=== PATIENT | male | born 1930 | race Caucasian/White ===

== ENCOUNTER 2018-11-13 13:02 | Inpatient (IN) | payer MEDICARE ==
[2018-11-11 09:43] LABS: BASOPHILS # (AUTO) 0.1 X10'3 (0-0.2); BASOPHILS % (AUTO) 0.9 % (0-1); EOSINOPHILS # (AUTO) 0.3 X10'3 (0-0.9); EOSINOPHILS % (AUTO) 3.4 % (0-6); HEMATOCRIT 40.1 % (42.0-52.0); HEMOGLOBIN 13.6 g/dl (14.0-17.9); LYMPHOCYTES # (AUTO) 1.7 X10'3 (1.1-4.8); LYMPHOCYTES % (AUTO) 22.8 % (21-51); MEAN CORPUSCULAR HEMOGLOBIN 32.9 PG (27.0-31.0); MEAN CORPUSCULAR VOLUME 96.9 FL (78-98); MEAN PLATELET VOLUME 7.3 FL (7.4-10.4); MONOCYTES # (AUTO) 0.9 X10'3 (0-0.9); MONOCYTES % (AUTO) 11.5 % (2-12); NEUTROPHILS # (AUTO) 4.7 X10'3 (1.8-7.7); NEUTROPHILS % (AUTO) 61.4 % (42-75); PLATELET COUNT 172 X10'3 (140-440); RED BLOOD COUNT 4.14 X10'6 (4.70-6.10); RED CELL DISTRIBUTION WIDTH 13.5 % (11.5-14.5); WHITE BLOOD COUNT 7.7 X10'3 (4.5-11.0)
[2018-11-11 09:51] LABS: ALANINE AMINOTRANSFERASE 30 U/L (12-78); ALBUMIN 3.4 G/DL (3.4-5.0); ALBUMIN/GLOBULIN RATIO 0.8 (1.1-1.5); ALKALINE PHOSPHATASE 96 IU/L (46-116); ANION GAP 4 (8-16); ASPARTATE AMINO TRANSFERASE 15 U/L (10-37); BILIRUBIN,TOTAL 0.8 MG/DL (0.1-1.0); BLOOD UREA NITROGEN 15 MG/DL (7-18); BUN/CREATININE RATIO 15.6 (5.4-32.0); CALCIUM 9.2 MG/DL (8.5-10.1); CHLORIDE 102 MMOL/L (99-107); CREATININE 0.96 MG/DL (0.60-1.10); POTASSIUM 4.4 MMOL/L (3.5-5.1); SODIUM 136 MMOL/L (135-145); TOTAL CARBON DIOXIDE 30.4 MMOL/L (24-32); TOTAL PROTEIN 7.7 G/DL (6.4-8.2); eGFR 74 ML/MIN
[2018-11-11 09:52] LABS: GLUCOSE 157 MG/DL (70-104)
[~2018-11-13] VITALS: Ht 172.7 cm; Wt 86.3 kg
[2018-11-13] VITALS (12 sets, daily range): BP systolic 103–172; BP diastolic 52–82
[~2018-11-13 13:02] MED LIST: ASPI81TA52 PO; METO-395 PO
[2018-11-13] MEDS ORDERED: glucagon, human recombinant 1mg kit SUBCUT PRN (13:25)
[2018-11-13] MEDS ORDERED: LORazepam 0.5 MG tablet PO PRN (13:25)
[2018-11-13] MEDS ORDERED: dextrose 50%-water 50ml dispensing syringe IV PRN ×2 (13:25)
[2018-11-13] MEDS ORDERED: insulin Lispro (HumaLOG) vial - multi-dose SQ SCH (13:25)
[2018-11-13] MEDS ORDERED: clopidogrel 300mg tablet PO ONE (13:25)
[2018-11-13] MEDS ORDERED: dextrose ORAL solution 15 GM/59 ML bottle PO PRN ×2 (13:25)
[2018-11-13] MEDS ORDERED: nitroGLYCERIN 0.4mg SUBLingual tab SL PRN ×2 (13:25→17:15)
[2018-11-13] MEDS ORDERED: diphenhydrAMINE 25mg capsule PO PRN (13:25)
[2018-11-13] MEDS: normal saline 1,000 ML IV SCH (14:17)
[2018-11-13] MEDS ORDERED: CLOP75TA35 PO (14:38)
[2018-11-13] MEDS ORDERED: METO1TAB38 PO (14:38)
[2018-11-13] MEDS ORDERED: midazolam 2 mg/2 ml injection ONE (15:16)
[2018-11-13] MEDS ORDERED: LIDOcaine 1% (10mg/ml)w/preservative injection 20ml MDV ONE (15:16)
[2018-11-13] MEDS ORDERED: heparin 1,000 UNITS/NS 500ml 500 ML ONE (15:16)
[2018-11-13] MEDS ORDERED: fentaNYL/PF 50MCG/1 ML 2ML syringe ONE (15:16)
[2018-11-13] MEDS ORDERED: heparin 1,000unit/ml 10ml vial 10 ML ONE (15:16)
[2018-11-13] MEDS ORDERED: iohexol 350 MG/1 ML 200ml bottle ONE (15:16)
[2018-11-13] MEDS ORDERED: tirofiban 5mg in NS 100mL 100 ML IV ONE (15:29)
[2018-11-13] MEDS ORDERED: heparin 25,000 UNIT/250ml bag 250 ML IV ONE ×2 (15:45→17:15)
[2018-11-13] MEDS ORDERED: acetaminophen 325mg tablet PO PRN (17:10)
[2018-11-13] MEDS ORDERED: magnesium hydroxide 30ml (MOM) UD suspension PO PRN (17:10)
[2018-11-13] MEDS ORDERED: cyclobenzaprine 10mg tablet PO PRN (17:10)
[2018-11-13] MEDS ORDERED: proCHLORperazine 10 MG/2 ml inj IV PRN (17:10)
[2018-11-13] MEDS ORDERED: nitroGLYCERIN-Tridil 50MG/D5W 250 ML IV SCH (17:10)
[2018-11-13] MEDS ORDERED: OXAZEpam 15mg capsule PO PRN (17:10)
[2018-11-13] MEDS ORDERED: morphine 4 MG/ML inj SYRINge IV PRN (17:10)
[2018-11-13] MEDS ORDERED: morphine 10mg/ml inj. IV PRN (17:10)
[2018-11-13] MEDS: aspirin 81mg tab.chew PO SCH (17:10)
[2018-11-13] MEDS ORDERED: HYDROcodone/acetaminophen 10/325mg tab PO PRN (17:10)
[2018-11-13] MEDS ORDERED: nitroGLYCERIN-Tridil 50MG/D5W 250 ML IV PRN (17:25)
[2018-11-13] MEDS: tirofiban 5mg in NS 100mL 100 ML IV SCH (17:52)
--- NOTE | 2018-11-13 18:15 | NUR ---
Patient in room CICU 2006. I have received report from MAURA WEISS and had the opportunity to ask questions and assume patient care.
--- NOTE | 2018-11-13 19:00 | NUR ---
PT CATH SITE IS OOZING. DRESSING REINFORCED. NO HEMATOMA PRESENT. BILATERAL PEDAL PULSES PALPABLE. PT ORIENTED TO ROOM AND CALL LIGHT. PT A&O X 4. WILL CONTINUE TO MONITOR
[2018-11-13] MEDS: docusate sod 100mg capsule PO SCH (19:59)
[2018-11-13] MEDS: insulin glargine (Lantus) pen - multi-dose SQ SCH (21:00)
[2018-11-13 21:19] LABS: BASOPHILS # (AUTO) 0.1 X10'3 (0-0.2); BASOPHILS % (AUTO) 0.7 % (0-1); EOSINOPHILS # (AUTO) 0.3 X10'3 (0-0.9); EOSINOPHILS % (AUTO) 3.3 % (0-6); HEMATOCRIT 37.7 % (42.0-52.0); LYMPHOCYTES # (AUTO) 2.5 X10'3 (1.1-4.8); LYMPHOCYTES % (AUTO) 32.2 % (21-51); MEAN CORPUSCULAR HEMOGLOBIN 32.6 PG (27.0-31.0); MEAN CORPUSCULAR HGB CONC 34.6 g/dL (33.0-36.5); MEAN CORPUSCULAR VOLUME 94.5 FL (78-98); MONOCYTES # (AUTO) 0.8 X10'3 (0-0.9); MONOCYTES % (AUTO) 10.2 % (2-12); NEUTROPHILS # (AUTO) 4.2 X10'3 (1.8-7.7); NEUTROPHILS % (AUTO) 53.6 % (42-75); PLATELET COUNT 152 X10'3 (140-440); RED BLOOD COUNT 3.99 X10'6 (4.70-6.10); RED CELL DISTRIBUTION WIDTH 13.2 % (11.5-14.5); WHITE BLOOD COUNT 7.9 X10'3 (4.5-11.0)
[2018-11-13] MEDS ORDERED: heparin 25,000 UNIT/250ml bag 250 ML IV SCH (21:57)
[2018-11-14] VITALS (26 sets, daily range): BP systolic 102–165; BP diastolic 50–95
[2018-11-14] MEDS: tirofiban 5mg in NS 100mL 100 ML IV SCH (00:35)
--- NOTE | 2018-11-14 01:32 | NUR ---
pt complaining of increased back pain and groin pain. 2 mg morphine given per md order.
--- NOTE | 2018-11-14 02:30 | NUR ---
pt continues to report back and groin pain. no changes in groin site noted. pt bp decreased to 80/40. 200 ml fluid bolus given. pt reposition with pillows.
[2018-11-14 02:36] LABS: HEMATOCRIT 35.5 % (42.0-52.0); HEMOGLOBIN 12.1 g/dl (14.0-17.9); MEAN CORPUSCULAR HEMOGLOBIN 32.6 PG (27.0-31.0); MEAN CORPUSCULAR HGB CONC 34.1 g/dL (33.0-36.5); MEAN CORPUSCULAR VOLUME 95.6 FL (78-98); MEAN PLATELET VOLUME 7.1 FL (7.4-10.4); PLATELET COUNT 157 X10'3 (140-440); RED BLOOD COUNT 3.72 X10'6 (4.70-6.10); RED CELL DISTRIBUTION WIDTH 13.3 % (11.5-14.5); WHITE BLOOD COUNT 8.3 X10'3 (4.5-11.0)
[2018-11-14] MEDS: normal saline 1,000 ML IV SCH ×2 (02:38→16:19)
[2018-11-14 02:50] LABS: ALBUMIN 2.7 G/DL (3.4-5.0); ANION GAP 7 (8-16); BLOOD UREA NITROGEN 17 MG/DL (7-18); BUN/CREATININE RATIO 18.7 (5.4-32.0); CALCIUM 8.7 MG/DL (8.5-10.1); CHLORIDE 104 MMOL/L (99-107); CHOL/HDL RATIO 4.5 (0.00-4.99); CHOLESTEROL 130 MG/DL (0-200); CREATININE 0.91 MG/DL (0.60-1.10); GLUCOSE 159 MG/DL (70-104); HDL CHOLESTEROL 29 MG/DL (35-60); LDL CHOLESTEROL 81 MG/DL (50-100); POTASSIUM 4.1 MMOL/L (3.5-5.1); SODIUM 136 MMOL/L (135-145); TOTAL CARBON DIOXIDE 24.8 MMOL/L (24-32); TRIGLYCERIDES 206 MG/DL (20-135); eGFR 79 ML/MIN
--- NOTE | 2018-11-14 02:52 | NUR ---
pt reports his left eye hurts. says he takes eye drops to relieve the pressure but doesn't know what they are called. no eye drops are recorded on his med rec. pt states he will call his daughter to het the medication information tomorrow
--- NOTE | 2018-11-14 06:01 | NUR ---
heparin turned off per md order
--- NOTE | 2018-11-14 06:14 | NUR ---
Problems reprioritized. Patient report given, questions answered & plan of care reviewed with irina luque.
[2018-11-14] MEDS ORDERED: metoprolol tartrate 12.5mg (1/2 tablet) PO SCH (08:00)
[2018-11-14] MEDS ORDERED: HYDROchlorothiazide 25mg tablet PO SCH (08:00)
[2018-11-14] MEDS ORDERED: clopidogrel 75mg tablet PO SCH (08:00)
[2018-11-14] MEDS ORDERED: aspirin 81mg tablet.DR PO SCH (08:00)
[2018-11-14] MEDS: aspirin 81mg tab.chew PO SCH (08:11)
[2018-11-14] MEDS: atorvastatin 10mg tablet PO SCH (08:11)
[2018-11-14] MEDS: clopidogrel 75mg tablet PO SCH (08:11)
[2018-11-14] MEDS: docusate sod 100mg capsule PO SCH ×2 (08:11→19:33)
--- NOTE | 2018-11-14 09:30 | NUR ---
Aggrastat turned off per Dr Wang with orders to have logging rafter laborer pull the sheath in 3 hours
[2018-11-14] MEDS ORDERED: METO-395 PO (12:12)
--- NOTE | 2018-11-14 13:35 | NUR ---
DM consult, patient's A1C is 7.6, patient seen at bedside and given written DM education handout with verbal review and referral to outpatient DM education class. Addendum: 11/14/18 at [address] Amended: Links added.
[2018-11-14] MEDS: HYDROcodone/acetaminophen 10/325mg tab PO PRN ×2 (13:39→22:08)
[2018-11-14] MEDS ORDERED: morphine 2 MG/ML inj. syringe IV PRN (15:07)
--- NOTE | 2018-11-14 16:00 | NUR ---
Dr Wang at bedside. Orders received. Pt can go to PCU if we need a bed. He is to be discharged tomorrow after working with physical therapy. Discharge medications are written and placed in the chart
[2018-11-14] MEDS ORDERED: BRIM5DRO2 LEFTEYE (16:48)
[2018-11-14] MEDS ORDERED: PHENYLEPH/MIN OIL/PETROLAT hemorrhoid oint 57GM tube RC PRN (16:55)
--- NOTE | 2018-11-14 18:32 | NUR ---
Patient in room CICU 2006. I have received report from irina luque and had the opportunity to ask questions and assume patient care.
[2018-11-14] MEDS: COMBIGAN LEFTEYE SCH (19:34)
[2018-11-14] MEDS: OPTH LEFTEYE SCH (19:34)
--- NOTE | 2018-11-14 19:43 | NUR ---
femstop removed. no bleeding or hematoma present. ecchymosis present. drainage on dressing circled. pedal pulses palpable. pt educated on warning s/s and verbalized understanding. will continue to monitor.
[2018-11-14] MEDS ORDERED: non-formulary drug (Brimonidine Tartrate/Timolol (Combigan Eye Drops) 1 DROP) LEFTEYE SCH (20:00)
[2018-11-14] MEDS: insulin glargine (Lantus) pen - multi-dose SQ SCH (21:00)
[2018-11-15] VITALS (10 sets, daily range): BP systolic 97–161; BP diastolic 37–69
--- NOTE | 2018-11-15 00:40 | NUR ---
pt is having bradycardic episodes where he bradys down into the 30-40. pt is asymptomatic. strip of events printed. zole and pacer pads at bedside. call placed to md. waiting for call back
[2018-11-15 05:33] LABS: ANION GAP 5 (8-16); BLOOD UREA NITROGEN 13 MG/DL (7-18); BUN/CREATININE RATIO 14.9 (5.4-32.0); CALCIUM 9.2 MG/DL (8.5-10.1); CHLORIDE 98 MMOL/L (99-107); CREATININE 0.87 MG/DL (0.60-1.10); GLUCOSE 142 MG/DL (70-104); POTASSIUM 3.9 MMOL/L (3.5-5.1); SODIUM 131 MMOL/L (135-145); eGFR 83 ML/MIN
--- NOTE | 2018-11-15 06:30 | NUR ---
Patient in room CICU 2006. I have received report from ABHISHEK Arias and had the opportunity to ask questions and assume patient care.
[2018-11-15] MEDS: OPTH LEFTEYE SCH (07:21)
[2018-11-15] MEDS: atorvastatin 10mg tablet PO SCH (07:21)
[2018-11-15] MEDS: docusate sod 100mg capsule PO SCH (07:21)
[2018-11-15] MEDS: COMBIGAN LEFTEYE SCH (07:21)
[2018-11-15] MEDS: aspirin 81mg tab.chew PO SCH (07:21)
[2018-11-15] MEDS: clopidogrel 75mg tablet PO SCH (07:21)
[2018-11-15] MEDS ORDERED: metoprolol succinate 25mg (24-HOUR) SR. Tablet PO SCH (08:00)
[2018-11-15 08:17] LABS: BASOPHILS # (AUTO) 0.1 X10'3 (0-0.2); BASOPHILS % (AUTO) 0.8 % (0-1); EOSINOPHILS # (AUTO) 0.2 X10'3 (0-0.9); EOSINOPHILS % (AUTO) 2.1 % (0-6); HEMATOCRIT 35.9 % (42.0-52.0); HEMOGLOBIN 12.4 g/dl (14.0-17.9); LYMPHOCYTES # (AUTO) 1.7 X10'3 (1.1-4.8); LYMPHOCYTES % (AUTO) 19.4 % (21-51); MEAN CORPUSCULAR HEMOGLOBIN 33.4 PG (27.0-31.0); MEAN CORPUSCULAR HGB CONC 34.6 g/dL (33.0-36.5); MEAN CORPUSCULAR VOLUME 96.3 FL (78-98); MEAN PLATELET VOLUME 7.4 FL (7.4-10.4); MONOCYTES # (AUTO) 0.8 X10'3 (0-0.9); MONOCYTES % (AUTO) 8.8 % (2-12); NEUTROPHILS # (AUTO) 6.1 X10'3 (1.8-7.7); NEUTROPHILS % (AUTO) 68.9 % (42-75); PLATELET COUNT 126 X10'3 (140-440); RED BLOOD COUNT 3.73 X10'6 (4.70-6.10); RED CELL DISTRIBUTION WIDTH 13.2 % (11.5-14.5); WHITE BLOOD COUNT 8.9 X10'3 (4.5-11.0)
--- NOTE | 2018-11-15 09:45 | NUR ---
pt is awake and alert, forgetful at times. junctional rhythm with sinus bradycardiac noted when pt is asleep. pt is asymptomatic, no complains of chest pain. cath site to right groin soft to touch. no hematoma noted. bruising noted to bilateral groins. doppler post-tib pulses weak but present. no c/o numbness or tingling. cap refill < 3 second. RN notified PT to work with pt at 0700. Tolerated diet without nausea or vomiting. Transfer order received for PCU. awaiting PT to eval pt before discharge home. Report given to ABHISHEK Lopez. Questions answered. concerns addressed. Transported pt via wheelchair with belongings. updated family at bedside with plan of care.
--- NOTE | 2018-11-15 10:00 | NUR ---
assumed pt care VSS family at the bed site I Pagan
--- NOTE | 2018-11-15 11:00 | NUR ---
PT evaluation done pt did well notified Raudel Looney RN
[2018-11-15] MEDS ORDERED: ATOR10TA PO (11:41)
--- NOTE | 2018-11-15 12:10 | NUR ---
MD liz to D/C patient All instruction given prescription call to [facility] pharmacy IV removed D/C home,e with daughter Raudel Looney ABHISHEK
== END 2018-11-15 12:15 | disposition home or self-care (01) | DRG 247 ==
LOC: SSTAY O 13:02 → CICU 2S 18:36 → SSTAY O 18:36 → PCU 3S 11-15 10:15
PROVIDERS: ADMIT Internal Medicine Cardiovascular Disease; ATTEND Internal Medicine Cardiovascular Disease
PROC: 027034Z Dilation of Coronary Artery, One Artery with Drug-eluting Intraluminal Device, Percutaneous Approach (ICD-10-PCS; principal; 2018-11-13)
DX: T82.857A Stenosis of other cardiac prosthetic devices, implants and grafts, initial encounter (principal); I24.8 Other forms of acute ischemic heart disease; M19.90 Unspecified osteoarthritis, unspecified site; I65.21 Occlusion and stenosis of right carotid artery; T82.867A Thrombosis due to cardiac prosthetic devices, implants and grafts, initial encounter; Y83.2 Surgical operation with anastomosis, bypass or graft as the cause of abnormal reaction of the patient, or of later complication, without mention of misadventure at the time of the procedure; Z91.81 History of falling; Z79.899 Other long term (current) drug therapy; Z95.1 Presence of aortocoronary bypass graft; Z86.73 Personal history of transient ischemic attack (TIA), and cerebral infarction without residual deficits; Y92.89 Other specified places as the place of occurrence of the external cause
CPT/HCPCS: 36415; 71046; 80048; 80053; 80061; 82948; 83036; 85025; 85027; 85610; 85730; 97116; 97162; 97530; 99152; 99153; A4620; A6257; C1725; C1769; C1874; C9604; G0378; J1644; J1815; J2001; J2250; J2270; J3010; J3246; J3490; J7030; Q0163; Q9967

== ENCOUNTER 2018-12-03 08:22 | Inpatient (IN) | payer MEDICARE | END 2018-12-06 12:13 | disposition home or self-care (01) | LOC: SUR 3N 12-05 22:00 → PAS IN 08:22 → CICU 2S 13:05 | PROC: 03CL0ZZ Extirpation of Matter from Left Internal Carotid Artery, Open Approach (ICD-10-PCS; principal; 2018-12-03 10:23) | DX: I65.22 Occlusion and stenosis of left carotid artery (principal); G45.3 Amaurosis fugax ==

== ENCOUNTER 2019-01-07 10:39 | Emergency (ER) | payer MEDICARE ==
[~2019-01-07] VITALS: Ht 172.7 cm; Wt 90.0 kg
[~2019-01-07 10:39] MED LIST changes: +CLOP75TA35 PO
[2019-01-07 11:17] LABS: BASOPHILS # (AUTO) 0.1 X10'3 (0-0.2); BASOPHILS % (AUTO) 1.4 % (0-1); EOSINOPHILS # (AUTO) 0.1 X10'3 (0-0.9); EOSINOPHILS % (AUTO) 1.4 % (0-6); HEMATOCRIT 36.5 % (42.0-52.0); HEMOGLOBIN 12.4 g/dl (14.0-17.9); LYMPHOCYTES # (AUTO) 1.9 X10'3 (1.1-4.8); LYMPHOCYTES % (AUTO) 25.8 % (21-51); MEAN CORPUSCULAR HEMOGLOBIN 33.2 PG (27.0-31.0); MEAN CORPUSCULAR HGB CONC 33.9 g/dL (33.0-36.5); MEAN CORPUSCULAR VOLUME 97.9 FL (78-98); MEAN PLATELET VOLUME 7.3 FL (7.4-10.4); MONOCYTES # (AUTO) 0.8 X10'3 (0-0.9); MONOCYTES % (AUTO) 10.9 % (2-12); NEUTROPHILS # (AUTO) 4.5 X10'3 (1.8-7.7); NEUTROPHILS % (AUTO) 60.5 % (42-75); PLATELET COUNT 143 X10'3 (140-440); RED BLOOD COUNT 3.73 X10'6 (4.70-6.10); RED CELL DISTRIBUTION WIDTH 14.2 % (11.5-14.5); WHITE BLOOD COUNT 7.4 X10'3 (4.5-11.0)
[2019-01-07] MEDS ORDERED: normal saline 1000ML IV soln IVB ONE ×2 (11:25→12:30)
[2019-01-07 11:31] LABS: ALANINE AMINOTRANSFERASE 35 U/L (12-78); ALBUMIN 3.5 G/DL (3.4-5.0); ALBUMIN/GLOBULIN RATIO 0.8 (1.1-1.5); ALKALINE PHOSPHATASE 90 IU/L (46-116); ANION GAP 8 (8-16); ASPARTATE AMINO TRANSFERASE 26 U/L (10-37); BILIRUBIN,TOTAL 1.1 MG/DL (0.1-1.0); BLOOD UREA NITROGEN 23 MG/DL (7-18); BUN/CREATININE RATIO 21.3 (5.4-32.0); CALCIUM 9.6 MG/DL (8.5-10.1); CHLORIDE 105 MMOL/L (99-107); CREATININE 1.08 MG/DL (0.60-1.10); SODIUM 138 MMOL/L (135-145); TOTAL CARBON DIOXIDE 24.6 MMOL/L (24-32); TOTAL PROTEIN 7.9 G/DL (6.4-8.2); eGFR 65 ML/MIN
[2019-01-07 11:32] LABS: PARTIAL THROMBOPLASTIN TIME 28 SECONDS (22-32)
[2019-01-07 11:34] LABS: TROPONIN I < 0.04 NG/ML (0.0-0.05)
[2019-01-07 11:36] LABS: GLUCOSE 169 MG/DL (70-104)
[2019-01-07 13:07] LABS: CLARITY,URINE CLOUDY (Clear); COLOR,URINE YELLOW (Yellow); GLUCOSE, URINE NEGATIVE (Neg); KETONES,URINE NEGATIVE (Neg); LEUKOCYTE ESTERASE ,URINE NEGATIVE (Neg); NITRITES, URINE NEGATIVE (Neg); OCCULT BLOOD,URINE NEGATIVE (Neg); PH,URINE 5.5 (4.8-8.0); PROTEIN,URINE TRACE mg/dl (Neg); UROBILINOGEN,URINE 0.2 E.U/dL (0.2-1.0)
[2019-01-07 13:13] LABS: UA COLLECTION TYPE URINAL
[2019-01-07 13:14] LABS: HYALINE CASTS 0-3 /LPF (NEGATIVE); MUCUS STRANDS FEW /LPF (Neg); SQUAMOUS EPITHELIAL CELL,UR MANY /LPF (FEW)
[2019-01-07 13:17] LABS: BACTERIA,URINE FEW /HPF (Neg); RBC,URINE 0-2 /HPF (0-2); TRANSITIONAL EPI CELLS,URINE MODERATE /HPF; WBC,URINE 0-4 /HPF (0-4)
[2019-01-07 13:42] VITALS: BP 144/78
== END 2019-01-07 13:44 | disposition home or self-care (01) ==
LOC: ER 10:39
DX: E86.0 Dehydration (principal); R41.0 Disorientation, unspecified; Z98.890 Other specified postprocedural states; Z79.82 Long term (current) use of aspirin; Z79.899 Other long term (current) drug therapy
CPT/HCPCS: 36415; 70450; 71045; 80053; 81001; 82948; 84484; 85025; 85610; 85730; 93005; 96360; 99284; J7030

== ENCOUNTER 2019-11-30 09:28 | Emergency (ER) | payer MEDICARE ==
[~2019-11-30] VITALS: Ht 172.7 cm; Wt 81.8 kg
[2019-11-30] MEDS ORDERED: DOXY100C76 PO (11:13)
[2019-11-30 11:34] VITALS: BP 165/79
== END 2019-11-30 11:34 | disposition home or self-care (01) ==
LOC: ER 09:29
DX: L02.213 Cutaneous abscess of chest wall (principal); I25.10 Atherosclerotic heart disease of native coronary artery without angina pectoris; Z86.73 Personal history of transient ischemic attack (TIA), and cerebral infarction without residual deficits; Z98.890 Other specified postprocedural states; Z79.82 Long term (current) use of aspirin; Z79.899 Other long term (current) drug therapy
CPT/HCPCS: 10060; 99284

== ENCOUNTER 2019-12-02 07:38 | Emergency (ER) | payer MEDICARE ==
[~2019-12-02] VITALS: Ht 172.7 cm; Wt 82.7 kg
[~2019-12-02 07:38] MED LIST changes: +DOXY100C76 PO; +lidocaine 1%/epinephrine 1:100,000 injection 50ml vial ONE
[2019-12-02 07:41] VITALS: BP 137/72
--- NOTE | 2019-12-02 08:58 | NUR ---
right chest oozing cyst with bloody drainage treated by Dr. Hamlin. Antibiotic ointment and gauze and tape dressing applied per MD request.
== END 2019-12-02 09:00 | disposition home or self-care (01) ==
LOC: ER 07:38
DX: L72.3 Sebaceous cyst (principal); L08.9 Local infection of the skin and subcutaneous tissue, unspecified; I25.10 Atherosclerotic heart disease of native coronary artery without angina pectoris; Z86.73 Personal history of transient ischemic attack (TIA), and cerebral infarction without residual deficits; Z98.890 Other specified postprocedural states; Z79.82 Long term (current) use of aspirin; Z79.899 Other long term (current) drug therapy
CPT/HCPCS: 10060; 99284